=== PATIENT | female | born 1995 | race Two or more races ===

== ENCOUNTER 2019-02-28 16:26 | Emergency (ER) | payer SELFPAY ==
[~2019-02-28] VITALS: Ht 162.6 cm; Wt 77.1 kg
[2019-02-28 21:11] VITALS: BP 124/80
== END 2019-02-28 21:17 | disposition home or self-care (01) ==
LOC: ER 16:33
DX: O26.892 Other specified pregnancy related conditions, second trimester (principal); R10.9 Unspecified abdominal pain; Z3A.24 24 weeks gestation of pregnancy
CPT/HCPCS: 36415; 84484; 93005